=== PATIENT | male | born 1995 | race African-American/Black ===

== ENCOUNTER 2016-07-07 11:43 | Emergency (ER) | payer SELFPAY ==
[~2016-07-07] VITALS: Ht 180.3 cm; Wt 65.0 kg
[~2016-07-07 11:43] MED LIST: CIPR500T4 PO; FLAG500T PO
[2016-07-07 11:45] VITALS: BP 123/85; PULSE 80; RESP 16; TEMP 98; O2SAT 96
--- NOTE | 2016-07-07 12:00 | PD ---
HPI Chief Complaint: ENT Complaint Time Seen by Provider: 11:56 Travel History International Travel<30 days: No Contact w/Intl Traveler<30days: No Traveled to known affect area: No History of Present Illness HPI Patient comes in complaining of bilateral eye pain ongoing for approximately a week and is burning like sensation that has improved but since developed a headache and sore throat 3 days ago. Patient using [id number] medication with minimal relief of his pain. Patient denies any change in his vision, eye crusting, discharge from his eyes, fevers, nausea, vomiting, neck stiffness, head trauma, chest pain, shortness of breath, abdominal pain, or change in urination. Patient states throat pain is worse with swallowing and denies any radiation. Patient reports associated more frequent bowel movements over the past several days without blood or mucus. PFSH Past Medical History Depression: Yes Cancer: No Diabetes: No Diminished Hearing: No Psychiatric: Yes (HX OF DEPRESSION) Immunizations Current: No Seizures: No Thyroid Disease: No Ulcer: No Tetanus Vaccination: > 5 Years Influenza Vaccination: No Past Surgical History Abdominal Surgery: Yes ( UMBILICAL HERNIA) Other Surgery: No Social History Alcohol Use: Yes (PT STATES DAILY) Tobacco Use: Yes Substance Use: Yes (ALCOHOL, THC, XANAX) Allergies-Medications (Allergen,Severity, Reaction): Coded Allergies: Shellfish (Verified Allergy, Severe, 07/07/16) Reported Meds & Prescriptions Reported Meds & Active Scripts Active Diclofenac Sodium DR (Diclofenac Sodium) 75 Mg Tabdr 75 Mg PO Q12HR PRN Review of Systems Except as stated in HPI: all other systems reviewed are Neg Physical Exam Narrative GENERAL: Well-developed, well nourished, in no acute distress, and non-ill appearing. SKIN: Warm and dry. HEAD: Atraumatic. Normocephalic. EYES: Pupils equal and round. EOMI. No scleral icterus. No injection or drainage. ENT: No nasal bleeding or discharge. Mucous membranes pink and moist. Tympanic membranes are pearly lott bilaterally. Posterior pharynx mildly erythematous without exudate. Uvula is midline. No tenderness to facial sinuses to palpation. NECK: Trachea midline. No cervical lymphadenopathy. Supple. No nuclear rigidity. CARDIOVASCULAR: Regular rate and rhythm. No murmur appreciated. RESPIRATORY: No accessory muscle use. No respiratory distress. Clear to auscultation. Breath sounds equal bilaterally. MUSCULOSKELETAL: No obvious deformities. No clubbing. No cyanosis. No edema. Full range of motion. NEUROLOGICAL: Awake and alert. No obvious cranial nerve deficits. Motor grossly within normal limits. Normal speech. PSYCHIATRIC: Appropriate mood and affect; insight and judgment normal. Data Data Last Documented VS Vital Signs Date Time Temp Pulse Resp B/P Pulse Ox O2 Delivery O2 Flow Rate FiO2 07/07/16 11:45 98.0 80 16 123/[address] Brain W/O Iv Contrast(Rout) (07/07/16 ) Group A Rapid Strep Screen (07/07/16 11:53) Influenzae A/B Antigen (07/07/16 11:53) Strep Culture (Group A) (07/07/16 11:55) MDM Medical Decision Making Medical Screen Exam Complete: Yes Emergency Medical Condition: Yes Differential Diagnosis Headache, migraine headache, mass, intracranial hemorrhage, strep pharyngitis, viral pharyngitis, influenza, viral syndrome, allergies, other Narrative Course Patient in no obvious distress upon re-evaluation. All pertinent laboratory/ Radiology result(s) discussed with patient. Patient was asked if they wanted to speak to my attending, which the patient did not wish to do at this time. Any questions/concerns in reference to patient diagnosis/condition discussed and clarified prior to patient's discharge. Reinforced sheer importance of close follow up with patient's primary physician or primary care clinic. Instructed patient to return to ED immediately, if symptoms return/worsen. Pt showed understanding of above instructions. Further instructions and recommendations were detailed in discharge paperwork. Pt ambulated without difficulty out of ED at discharge. Diagnosis Primary Impression: Viral syndrome Referrals: [facility] Patient Instructions: General Instructions, Viral Syndrome (DC) Additional Instructions: Follow-up with your primary care physician in 2-3 days. Take all medication as prescribed. Drink plenty of non-caffeinated and nonalcoholic fluids. Return to the emergency department if symptoms get worse. Med/Other Pt SpecificInfo: Prescription(s) given Scripts Diclofenac Sodium DR 75 Mg Tabdr75 Mg PO Q12HR PRN (PAIN SCALE 1 TO 10) #14 TAB Ref 0 Prov:Latricia Arguello MD 07/07/16 Disposition: 01 DISCHARGE HOME Condition: Stable Asa Mederos Jul 07, 2016 12:00
--- NOTE | 2016-07-07 12:57 | RADRPT ---
EXAM DATE/TIME: 07/07/2016 12:22 [facility] COMPARISON: No previous studies available for comparison. INDICATIONS : Cephalgia for three days. RADIATION DOSE: 56.35 CTDIvol (mGy) MEDICAL HISTORY : None SURGICAL HISTORY : None. ENCOUNTER: Initial ACUITY: 3 days PAIN SCALE: 5/10 LOCATION: cranial TECHNIQUE: Multiple contiguous axial images were obtained of the head. Using automated exposure control and adj ustment of the mA and/or kV according to patient size, radiation dose was kept as low as reasonably a chievable to obtain optimal diagnostic quality images. FINDINGS: CEREBRUM: The ventricles are normal for age. No evidence of midline shift, mass lesion, hemorrhage or acute in farction. No extra-axial fluid collections are seen. POSTERIOR FOSSA: The cerebellum and brainstem are intact. The 4th ventricle is midline. The cerebellopontine angle i s unremarkable. EXTRACRANIAL: The visualized portion of the orbits is intact. SKULL: The calvaria is intact. No evidence of skull fracture. CONCLUSION: Negative for acute process. Garo Bosch MD FACR on July 07, 2016 at 12:56 Board Certified Radiologist. This report was verified electronically.
[2016-07-07] MEDS ORDERED: DICL75TA PO (13:26)
== END 2016-07-07 13:54 | disposition home or self-care (01) ==
LOC: NEPB 11:43
DX: B34.9 Viral infection, unspecified (principal); H57.13 Ocular pain, bilateral; R51 Headache; R07.0 Pain in throat; Z86.59 Personal history of other mental and behavioral disorders; Z72.0 Tobacco use
CPT/HCPCS: 70450; 87081; 87804; 87880

== ENCOUNTER 2016-07-14 22:48 | Emergency (ER) | payer SELFPAY ==
[~2016-07-14] VITALS: Ht 180.3 cm; Wt 66.0 kg
[~2016-07-14 22:48] MED LIST changes: -CIPR500T4 PO; +DICL75TA PO; -FLAG500T PO
[2016-07-14 22:50] VITALS: BP 131/84; PULSE 71; RESP 16; TEMP 97.8; O2SAT 96
[2016-07-15] MEDS ORDERED: SODIUM CHLORIDE 0.9% FLUSH 5 ML FLUSH IVF PRN (01:00)
[2016-07-15] MEDS ORDERED: diphenhydrAMINE HCL 50 MG/ML VIAL IVP ONE (01:00)
[2016-07-15] MEDS ORDERED: methylPREDNISolone SOD SUCC 125 MG/2 ML VIAL IVP ONE (01:00)
--- NOTE | 2016-07-15 01:14 | RADRPT ---
EXAM DATE/TIME: 07/15/2016 01:09 [facility] COMPARISON: No previous studies available for comparison. INDICATIONS : Pt having medial chest pain with hives for 3 days. MEDICAL HISTORY : Umbilical hernia SURGICAL HISTORY : None. ENCOUNTER: Initial ACUITY: 3 days PAIN SCORE: 7/10 LOCATION: Bilateral chest FINDINGS: A single view of the chest demonstrates the lungs to be symmetrically aerated without evidence of mas s, infiltrate or effusion. The cardiomediastinal contours are unremarkable. Osseous structures are intact. CONCLUSION: Normal examination. Jorge Murray MD on July 15, 2016 at 1:12 Board Certified Radiologist. This report was verified electronically.
--- NOTE | 2016-07-15 01:16 | PD ---
HPI Chief Complaint: Chest Pain Time Seen by Provider: 00:59 Travel History International Travel<30 days: No Contact w/Intl Traveler<30days: No Traveled to known affect area: No History of Present Illness HPI 20-year-old male seen last week for sore throat, had been put on medication for sore throat, and states that since then he has had itchiness and rash all over his body, and has been having chest discomfort. He denies any shortness of breath, coughing, fevers, or any other symptoms. Modifying Factors: None Associated Signs & Symptoms: Chest discomfort, rash Risk Factors: After being on medication for sore throat PFSH Past Medical History Depression: Yes Cancer: No Diabetes: No Diminished Hearing: No Psychiatric: Yes (HX OF DEPRESSION, PTSD) Immunizations Current: Yes Seizures: No Thyroid Disease: No Ulcer: No Past Surgical History Surgical History: No Previous Surgery Abdominal Surgery: Yes ( UMBILICAL HERNIA) Other Surgery: No Social History Alcohol Use: Yes (OCC) Tobacco Use: Yes (1PPD) Substance Use: Yes (THC, HX OF XANAX) Allergies-Medications (Allergen,Severity, Reaction): Coded Allergies: Shellfish (Verified Allergy, Severe, 07/14/16) Reported Meds & Prescriptions Reported Meds & Active Scripts Active Review of Systems Except as stated in HPI: all other systems reviewed are Neg Physical Exam Narrative GENERAL: Well-nourished, well-developed young -[place] male patient in no acute distress. SKIN: Warm and dry. I am not able to see any obvious rash or hives on patient' s dark skin. HEAD: Normocephalic. EYES: No scleral icterus. No injection or drainage. ENT: Mucosa pink and moist. No erythema or exudates. No uvular edema. No uvular , palatal, or tonsillar deviation. Airway patent. NECK: Supple, trachea midline. CARDIOVASCULAR: Regular rate and rhythm without murmurs, gallops, or rubs. RESPIRATORY: Breath sounds equal bilaterally. No accessory muscle use. GASTROINTESTINAL: Abdomen soft, non-tender, nondistended. MUSCULOSKELETAL: No cyanosis, or edema. BACK: Nontender without obvious deformity. No CVA tenderness. Data Data Last Documented VS Vital Signs Date Time Temp Pulse Resp B/P Pulse Ox O2 Delivery O2 Flow Rate FiO2 07/14/16 22:50 97.8 71 16 131/84 96 Room Air Orders Electrocardiogram (1/15/17 ) Ecg Monitoring (07/15/16 00:59) Iv Access Insert/Monitor (07/15/16 00:59) Oximetry (07/15/16 00:59) Diphenhydramine Inj (Benadryl Inj) (07/15/16 01:00) Methylprednisolone So Succ Inj (Solumedr (07/15/16 01:00) Sodium Chloride 0.9% Flush (Ns Flush) (07/15/16 01:00) Chest, Single Ap (07/15/16 00:59) Complete Blood Count With Diff (07/15/16 00:59) Basic Metabolic Panel (Bmp) (07/15/16 00:59) Ckmb (Isoenzyme) Profile (07/15/16 00:59) Troponin I (07/15/16 00:59) CKMB (07/15/16 00:00) CKMB% (07/15/16 00:00) Labs Laboratory Tests Test 07/15/16 00:00 White Blood Count 3.8 TH/MM3 Red Blood Count 4.95 MIL/MM3 Hemoglobin 14.2 GM/DL Hematocrit 41.8 % Mean Corpuscular Volume 84.4 FL Mean Corpuscular Hemoglobin 28.8 PG Mean Corpuscular Hemoglobin 34.1 % Concent Red Cell Distribution Width 13.4 % Platelet Count 130 TH/MM3 Mean Platelet Volume 10.8 FL Neutrophils (%) (Auto) 25.4 % Lymphocytes (%) (Auto) 59.6 % Monocytes (%) (Auto) 10.9 % Eosinophils (%) (Auto) 3.1 % Basophils (%) (Auto) 1.0 % Neutrophils # (Auto) 1.0 TH/MM3 Lymphocytes # (Auto) 2.3 TH/MM3 Monocytes # (Auto) 0.4 TH/MM3 Eosinophils # (Auto) 0.1 TH/MM3 Basophils # (Auto) 0.0 TH/MM3 CBC Comment AUTO DIFF Differential Total Cells 100 Counted Neutrophils % (Manual) 35 % Band Neutrophils % 1 % Lymphocytes % 48 % Monocytes % 2 % Eosinophils % 4 % Neutrophils # (Manual) 1.4 TH/MM3 Differential Comment FINAL DIFF MANUAL Atypical Lymphocytes 10 % Platelet Estimate LOW Platelet Morphology Comment NORMAL Ovalocytes 1+ Sodium Level 144 MEQ/L Potassium Level 3.5 MEQ/L Chloride Level 107 MEQ/L Carbon Dioxide Level 33.1 MEQ/L Anion Gap 4 MEQ/L Blood Urea Nitrogen 8 MG/DL Creatinine 1.35 MG/DL Estimat Glomerular Filtration 80 ML/MIN Rate Random Glucose 99 MG/DL Calcium Level 8.4 MG/DL Total Creatine Kinase 148 U/L Creatine Kinase MB LESS THAN 0.5 NG/ML Troponin I LESS THAN 0.02 NG/ML MDM Medical Decision Making Medical Screen Exam Complete: Yes Emergency Medical Condition: Yes Medical Record Reviewed: Yes Interpretation(s) EKG shows NSR, no ST elevation or depression, and no arrhythmias. No significant T-wave inversions. Laboratory Tests Test 07/15/16 00:00 White Blood Count 3.8 TH/MM3 (4.0-11.0) Platelet Count 130 TH/MM3 (150-450) Lymphocytes (%) (Auto) 59.6 % (9.0-44.0) Monocytes (%) (Auto) 10.9 % (0.0-8.0) Neutrophils # (Auto) 1.0 TH/MM3 (1.8-7.7) Lymphocytes % 48 % (9-44) Neutrophils # (Manual) 1.4 TH/MM3 (1.8-7.7) Atypical Lymphocytes 10 % (0-0) Platelet Estimate LOW (NORMAL) Ovalocytes 1+ (NORMAL) Carbon Dioxide Level 33.1 MEQ/L (21.0-32.0) Anion Gap 4 MEQ/L (5-15) Creatinine 1.35 MG/DL (0.60-1.30) Estimat Glomerular Filtration 80 ML/MIN (>89) Rate Calcium Level 8.4 MG/DL (8.5-10.1) Creatine Kinase MB LESS THAN 0.5 NG/ML (0.5-3.6) Troponin I LESS THAN 0.02 NG/ML (0.02-0.05) Last 24 hours Impressions Chest X-Ray 07/15/16 0059 Signed Impressions: Service Date/Time: Friday, July 15, 2016 01:09 - CONCLUSION: Normal examination. Jorge Murray MD Differential Diagnosis Chest discomfort, rashallergic reaction versus scarlet fever versus viral exanthem Narrative Course Lab work did not indicate any significant metabolic issues and cardiac enzymes are negative. EKG did not show any signs of acute ST-T changes. Patient has what appears to be rash and considering his recent strep, there is concern for possible underlying strep related rash. Review of patient's no from previous visit did not show any signs of antibiotics given. However, he states that he had been given an antibiotic. Considering that Pen-Vee K is seizure antibiotic given, my plan would be to give him a different antibiotic. In addition, patient was given Benadryl and steroids in the ER for possible underlying reaction to the medication. At this point, my plan would be to continue this with follow-up to primary care physician. Return for any worsening in symptoms as necessary. The plan has discussed with him and he is agreeable. Diagnosis Primary Impression: STREPTOCOCCAL PHARYNGITIS Additional Impression: Allergic reaction caused by a drug Med/Other Pt SpecificInfo: Prescription(s) given Scripts Prednisone 50 Mg Tab50 Mg PO DAILY #3 TAB Ref 0 Prov:Fercho Granados MD 07/15/16 Diphenhydramine (Benadryl Allergy)25 Mg Tab25 Mg PO Q6H PRN (ALLERGIES) #20 TAB Ref 0 Prov:Fercho Granados MD 07/15/16 Clindamycin 300 Mg Vrz019 Mg PO TID #21 CAP Ref 0 Prov:Fercho Granados MD 07/15/16 Disposition: DISCHARGE HOME Condition: Stable Fercho Granados MD Jul 15, 2016 01:16
[2016-07-15 01:22] LABS: EOSINOPHIL # 0.1 TH/MM3 (0-0.4); EOSINOPHIL % 3.1 % (0.0-4.0); HEMATOCRIT 41.8 % (39.0-51.0); LYMPH % 59.6 % (9.0-44.0); LYMPHOCYTE # 2.3 TH/MM3 (1.0-4.8); MEAN CELL VOLUME 84.4 FL (80.0-100.0); MEAN CORPUSCULAR HEMOGLOBIN 28.8 PG (27.0-34.0); MEAN CORPUSCULAR HGB CONC 34.1 % (32.0-36.0); MONO % 10.9 % (0.0-8.0); NEUT % 25.4 % (16.0-70.0); PLATELET COUNT 130 TH/MM3 (150-450); RED BLOOD COUNT 4.95 MIL/MM3 (4.50-5.90); RED CELL DISTRIBUTION WIDTH 13.4 % (11.6-17.2); WHITE BLOOD COUNT 3.8 TH/MM3 (4.0-11.0)
[2016-07-15 01:25] LABS: HEMO FLAGS AUTO DIFF
[2016-07-15 01:40] LABS: CREATINE KINASE 148 U/L (39-308)
[2016-07-15 01:41] LABS: ANION GAP 4 MEQ/L (5-15); BICARBONATE 33.1 MEQ/L (21.0-32.0); BLOOD UREA NITROGEN 8 MG/DL (7-18); CHLORIDE 107 MEQ/L (98-107); GLOMERULAR FILTRATION RATE 80 ML/MIN (>89); POTASSIUM 3.5 MEQ/L (3.5-5.1); SODIUM (NA) 144 MEQ/L (136-145)
[2016-07-15 01:52] LABS: CKMB LESS THAN 0.5 NG/ML (0.5-3.6)
[2016-07-15 02:04] LABS: ATYPICAL LYMPHOCYTES 10 % (0-0); BANDS 1 % (0-6); EOSINOPHILS 4 % (0-4); NEUTROPHIL # MANUAL DIFF 1.4 TH/MM3 (1.8-7.7); POLYS (SEG NEUTROPHILS) 35 % (16-70); WBC DIFF SAMPLE 100
[2016-07-15 02:05] LABS: OVALOCYTES 1+ (NORMAL); PLATELET ESTIMATE SMEAR LOW (NORMAL); PLATELET MORPHOLOGY NORMAL (NORMAL); SCAN/DIFF FINAL DIFF MANUAL
[2016-07-15] MEDS ORDERED: BENA25TA3 PO (02:16)
[2016-07-15] MEDS ORDERED: CLIN1CAP6 PO (02:16)
[2016-07-15] MEDS ORDERED: PRED50 PO (02:16)
--- NOTE | 2016-07-15 19:26 | EKG ---
Date Performed: 07/14/2016 Time Performed: 23:28:20 PTAGE: 20 years EKG: Sinus rhythm MODERATE T-WAVE ABNORMALITY, CONSIDER ANTERIOR ISCHEMIA ABNORMAL ECG NO PREVIOUS TRACING DOCTOR: Davis Fowler Interpretating Date/Time 07/15/2016 19:21:48
== END 2016-07-15 02:27 | disposition home or self-care (01) ==
LOC: NEPC 22:48
DX: J02.0 Streptococcal pharyngitis (principal); R21 Rash and other nonspecific skin eruption; T50.905A Adverse effect of unspecified drugs, medicaments and biological substances, initial encounter; R94.31 Abnormal electrocardiogram [ECG] [EKG]
CPT/HCPCS: 71010; 80048; 82550; 82552; 84484; 85007; 85027; 93005; 96374; 96375; 99285; J1200; J2930

== ENCOUNTER 2016-12-04 23:53 | Emergency (ER) | payer SELFPAY ==
[~2016-12-04 23:53] MED LIST changes: +BENA25TA3 PO; +CLIN1CAP6 PO; -DICL75TA PO; +PRED50 PO
[2016-12-04 23:54] VITALS: BP 137/88; PULSE 112; RESP 16; TEMP 99.5; O2SAT 98
[2016-12-05] MEDS ORDERED: AUGM875T3 PO (01:29)
--- NOTE | 2016-12-05 01:30 | PD ---
HPI Chief Complaint: Skin Problem Time Seen by Provider: 01:24 Travel History International Travel<30 days: No Contact w/Intl Traveler<30days: No Traveled to known affect area: No History of Present Illness HPI Patient's 21-year-old male presenting to emergency for evaluation of a lump to his right neck. He states it's been there for over a month. He noticed another lump on the opposite side for the last 2 weeks. He denies any pain, drainage, redness. He denies any recent illnesses. PFSH Past Medical History Depression: Yes Cancer: No Diabetes: No Diminished Hearing: No Psychiatric: Yes (HX OF DEPRESSION, PTSD) Immunizations Current: Yes Seizures: No Thyroid Disease: No Ulcer: No Past Surgical History Abdominal Surgery: Yes ( UMBILICAL HERNIA) Other Surgery: No Social History Alcohol Use: Yes (OCC) Tobacco Use: Yes (1PPD) Substance Use: Yes (THC, HX OF XANAX) Allergies-Medications (Allergen,Severity, Reaction): Coded Allergies: Shellfish (Verified Allergy, Severe, 12/04/16) Reported Meds & Prescriptions Reported Meds & Active Scripts Active Augmentin (Amoxicillin-Clavulanate) 875-125 Mg Tab 1 Tab PO BID 10 Days Review of Systems Except as stated in HPI: all other systems reviewed are Neg Skin: Positive Lumps Physical Exam Narrative GENERAL: Thin, well-developed, well-nourished, alert male. Resting comfortably in no acute distress. SKIN: Focused skin assessment warm/dry. HEAD: Atraumatic. Normocephalic. EYES: Pupils equal and round. No scleral icterus. No injection or drainage. ENT: No nasal bleeding or discharge. Mucous membranes pink and moist. NECK: Trachea midline. No JVD. Enlarged lymph node on the right posterior cervical chain and left posterior cervical chain. Both are movable and nontender, no surrounding erythema CARDIOVASCULAR: Regular rate and rhythm. No murmur appreciated. RESPIRATORY: No accessory muscle use. Clear to auscultation. Breath sounds equal bilaterally. GASTROINTESTINAL: Abdomen soft, non-tender, nondistended. Hepatic and splenic margins not palpable. MUSCULOSKELETAL: No obvious deformities. No clubbing. No cyanosis. No edema. NEUROLOGICAL: Awake and alert. No obvious cranial nerve deficits. Motor grossly within normal limits. Normal speech. PSYCHIATRIC: Appropriate mood and affect; insight and judgment normal. Data Data Last Documented VS Vital Signs Date Time Temp Pulse Resp B/P Pulse Ox O2 Delivery O2 Flow Rate FiO2 12/04/16 23:54 99.5 112 16 137/88 98 Room Air MDM Medical Decision Making Medical Screen Exam Complete: Yes Emergency Medical Condition: Yes Interpretation(s) Vital Signs Date Time Temp Pulse Resp B/P Pulse Ox O2 Delivery O2 Flow Rate FiO2 12/04/16 23:54 99.5 112 16 137/88 98 Room Air Differential Diagnosis Cyst versus abscess versus enlarged lymph node versus other Narrative Course Patient is a 21-year-old male presenting to the emergency department for evaluation of lumps to the back of his neck for the last 4-6 weeks. Patient was mildly tachycardic on arrival, heart rate was reassessed at 89. Physical examination appears consistent with lymphadenopathy. Patient was placed on Augmentin, he was advised to follow-up with her primary doctor or return to emergency department for any new or worsening symptoms. He verbalized understanding of these instructions. Patient is stable for discharge Diagnosis Primary Impression: Lymphadenitis Referrals: [facility] Primary Care Physician Patient Instructions: General Instructions, Lymphadenopathy (ED) Additional Instructions: Follow-up with the primary doctor or at the [facility] Complete full course of antibiotics as prescribed Return to emergency department for any new or worsening symptoms Med/Other Pt SpecificInfo: Prescription(s) given Scripts Amoxicillin-Clavulanate (Augmentin)875-125 Mg Tab1 Tab PO BID 10 Days Ref 0 Prov:Kelley Kebede 12/05/16 Disposition: 01 DISCHARGE HOME Condition: Stable Kelley Kebede Dec 05, 2016 01:30
== END 2016-12-05 01:50 | disposition home or self-care (01) ==
LOC: NEPD 23:53
DX: I88.9 Nonspecific lymphadenitis, unspecified (principal); F17.210 Nicotine dependence, cigarettes, uncomplicated
CPT/HCPCS: 99283

== ENCOUNTER 2017-07-26 01:52 | Emergency (ER) | payer SELFPAY ==
[~2017-07-26] VITALS: Ht 188 cm; Wt 67.1 kg
[~2017-07-26 01:52] MED LIST changes: +AUGM875T3 PO; -BENA25TA3 PO; -CLIN1CAP6 PO; -PRED50 PO
[2017-07-26 01:53] VITALS: BP 131/73; PULSE 95; RESP 16; TEMP 99.7; O2SAT 98
[2017-07-26 02:21] VITALS: BP 110/70; PULSE 83; RESP 16; O2SAT 99
--- NOTE | 2017-07-26 02:43 | RADRPT ---
EXAM DATE/TIME: 07/26/2017 02:31 [facility] COMPARISON: CHEST SINGLE AP, July 15, 2016, 1:09. INDICATIONS : Chest pain. MEDICAL HISTORY : None. SURGICAL HISTORY : None. ENCOUNTER: Initial ACUITY: 1 day PAIN SCORE: 7/10 LOCATION: Left chest FINDINGS: A single view of the chest demonstrates the lungs to be symmetrically aerated without evidence of mas s, infiltrate or effusion. The cardiomediastinal contours are unremarkable. Osseous structures are intact. CONCLUSION: Normal examination. Jorge Gaviria MD on July 26, 2017 at 2:41 Board Certified Radiologist. This report was verified electronically.
--- NOTE | 2017-07-26 02:46 | PD ---
HPI Chief Complaint: Medical Clearance Time Seen by Provider: 02:14 Travel History International Travel<30 days: No Contact w/Intl Traveler<30days: No Traveled to known affect area: No History of Present Illness HPI 21-year-old male complains of chest pain retrosternal for about a week and half. No pleuritic or exertional component. No cough or fever. No family history coronary artery disease or family history of sudden onset coronary . Patient has no history of cardiac disease. He also complains of a rash on the penis which he thinks is due to excessive masturbation. PFSH Past Medical History Depression: Yes Cancer: No Diabetes: No Diminished Hearing: No Psychiatric: Yes (HX OF DEPRESSION, PTSD) Immunizations Current: Yes Seizures: No Thyroid Disease: No Ulcer: No Tetanus Vaccination: Unknown Influenza Vaccination: No Past Surgical History Abdominal Surgery: Yes ( UMBILICAL HERNIA) Other Surgery: No Social History Alcohol Use: Yes (OCC) Tobacco Use: Yes (1PPD) Substance Use: Yes (THC, HX OF XANAX) Allergies-Medications (Allergen,Severity, Reaction): Coded Allergies: shellfish derived (Unverified Allergy, Severe, 02/11/17) Reported Meds & Prescriptions Reported Meds & Active Scripts Active Review of Systems Except as stated in HPI: all other systems reviewed are Neg Physical Exam Narrative GENERAL: 21 yo M, WNWD, NAD : excoriation about the glans. no discharge. SKIN: Warm and dry. HEAD: Atraumatic. Normocephalic. EYES: Pupils equal and round. No scleral icterus. No injection or drainage. ENT: No nasal bleeding or discharge. Mucous membranes pink and moist. NECK: Trachea midline. No JVD. CARDIOVASCULAR: Regular rate and rhythm. RESPIRATORY: No accessory muscle use. Clear to auscultation. Breath sounds equal bilaterally. GASTROINTESTINAL: Abdomen soft, non-tender, nondistended. Hepatic and splenic margins not palpable. MUSCULOSKELETAL: Extremities without clubbing, cyanosis, or edema. No obvious deformities. NEUROLOGICAL: Awake and alert. No obvious cranial nerve deficits. Motor grossly within normal limits. Five out of 5 muscle strength in the arms and legs. Normal speech. PSYCHIATRIC: Appropriate mood and affect; insight and judgment normal. Data Data Last Documented VS Vital Signs Date Time Temp Pulse Resp B/P (MAP) Pulse Ox O2 Delivery O2 Flow Rate FiO2 07/26/17 02:21 83 16 110/70 (83) 99 Room Air 07/26/17 01:53 99.7 Orders Orders Chest, Single Ap (07/26/17 ) [facility] Medical Decision Making Medical Screen Exam Complete: Yes Emergency Medical Condition: Yes Medical Record Reviewed: Yes Differential Diagnosis Costochondritis, pneumothorax, dermatitis Narrative Course EKG is a sinus rhythm with no evidence of ischemia or arrhythmia hour preexcitation The chest x-ray is unremarkable The patient is ready for discharge Diagnosis Primary Impression: Chest pain Qualified Codes: R07.9 - Chest pain, unspecified Additional Impressions: Rash of penis Aphthous ulcer of mouth Med/Other Pt SpecificInfo: No Change to Meds Disposition: 01 DISCHARGE HOME Condition: Stable Don Tolbert MD Jul 26, 2017 02:46
--- NOTE | 2017-07-26 13:27 | EKG ---
Date Performed: 07/26/2017 Time Performed: 02:18:08 PTAGE: 21 years EKG: Sinus rhythm BORDERLINE RIGHT AXIS DEVIATION MODERATE T-WAVE ABNORMALITY, CONSIDER ANTERIOR ISCHEMIA Since the pr ior tracing, there has been no significant change ABNORMAL ECG PREVIOUS TRACING : 07/26/2017 02.17 DOCTOR: Ricci Palma Interpretating Date/Time 07/26/2017 13:25:18
== END 2017-07-26 03:07 | disposition home or self-care (01) ==
LOC: NEPC 01:52
DX: R07.9 Chest pain, unspecified (principal); R21 Rash and other nonspecific skin eruption; K12.0 Recurrent oral aphthae; F17.200 Nicotine dependence, unspecified, uncomplicated
CPT/HCPCS: 71045; 93005; 99284